=== PATIENT | female | born 1985 | race Caucasian/White ===

== ENCOUNTER 2022-02-18 18:23 | Emergency (ER) | payer SELFPAY ==
[2022-02-18] MEDS ORDERED: Fluorescein Opthalmic Strip ONE (19:41)
[2022-02-18] MEDS ORDERED: Tetracaine 0.5% PF 4 ML BOT ONE (19:41)
== END 2022-02-18 20:20 | disposition home or self-care (01) ==
LOC: CSHERS 18:23
DX: H57.12 Ocular pain, left eye (principal)
CPT/HCPCS: 99283